=== PATIENT | male | born 1970 | race African-American/Black ===

== ENCOUNTER 2017-05-22 09:58 | Emergency (ER) | payer OTHER ==
[2017-05-22] MEDS: KETOROLAC 60 MG/2 ML VIAL (J1885) IM (12:00)
[2017-05-22] MEDS: BICILLIN L-A 2,400,000 UNIT/4 ML SYRINGE (J0561-24)PENICILLIN G BENZATINE IM (12:25)
== END 2017-05-22 13:07 | disposition home or self-care (01) ==
LOC: M ED 09:58
DX: J02.0 Streptococcal pharyngitis (principal); R03.0 Elevated blood-pressure reading, without diagnosis of hypertension; I10 Essential (primary) hypertension; Z88.8 Allergy status to other drugs, medicaments and biological substances; Z79.899 Other long term (current) drug therapy; Z87.891 Personal history of nicotine dependence
CPT/HCPCS: J0561